=== PATIENT | female | born 2005 | race Caucasian/White ===

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

== ENCOUNTER 2024-06-27 01:45 | Inpatient (IN) | payer OTHER ==
[2024-06-27] MEDS: ELECTROLYTE-148 SOLN 1,000 ML IV SCH (02:30)
[2024-06-27 02:34] VITALS: BMI 23.2
[2024-06-27] MEDS ORDERED: AMPICILLIN SODIUM 2 GM VIAL ONE (02:46)
[2024-06-27] MEDS: AMPICILLIN - 2 GM in SODIUM CHLORIDE 100 ML IVPB ONE (02:50)
[2024-06-27] MEDS ORDERED: OXYTOCIN 20 UNITS in 0.9% NS 20 UNIT/1,000 ML INFUS.BAG IV ONE ×2 (03:19→08:29)
[2024-06-27] MEDS ORDERED: LIDOCAINE HCL 1% PRESERVATIVE FREE - 30ML VIAL ONE (03:20)
[2024-06-27 03:21] LABS: BASO % 0.2 % (0-2.0); EOS % 0.4 % (0-4.5); HEMATOCRIT 32.4 % (32.4-45.2); HEMOGLOBIN 11.4 GM/dL (10.7-15.3); LYMPH % 17.9 % (8-40); MCH 30.9 pg (25.7-33.7); MCHC 35.2 g/dl (32.0-36.0); MEAN CELL VOLUME 87.8 fl (80-96); MEAN PLT VOLUME 7.4 fl (7.5-11.1); MONO % 7.2 % (3.8-10.2); NEUT % 74.3 % (42.8-82.8); PLATELET COUNT 404 10^3/uL (134-434); RBC 3.69 M/mm3 (3.60-5.2); RDW 12.3 % (11.6-15.6); WHITE BLOOD COUNT 10.9 K/mm3 (4.0-10.0)
[2024-06-27] MEDS ORDERED: FENTANYL/BUPIVACAINE/NS/PF - PCEA - 50 ML DISP.SYRIN EP ONE (03:27)
[2024-06-27 03:38] LABS: ACTIVATED PTT 29.8 SECONDS (25.2-36.5)
[2024-06-27] MEDS: FENTANYL/BUPIVACAINE/NS/PF - PCEA - 50 ML DISP.SYRIN EP SCH (03:55)
[2024-06-27 03:56] LABS: POTASSIUM 4.2 mmol/L (3.5-5.1)
[2024-06-27 03:57] LABS: CALCIUM 8.9 mg/dL (8.5-10.1)
[2024-06-27 03:58] LABS: BLOOD UREA NITROGEN 10.6 mg/dL (7-18)
[2024-06-27 04:01] LABS: CREATININE 0.6 mg/dL (0.55-1.3)
[2024-06-27] MEDS ORDERED: ELECTROLYTE-148 SOLN 1,000 ML IV SCH (04:15)
[2024-06-27 04:22] LABS: INR 0.96 (0.83-1.09); PROTHROMBIN TIME (PATIENT) 10.5 SEC (9.7-13.0)
[2024-06-27] MEDS ORDERED: NALOXONE HCL 0.4 MG/ML VIAL IVPUSH PRN (04:46)
[2024-06-27 04:48] LABS: HIV INTERPRETATION NEGATIVE (NEGATIVE)
[2024-06-27] MEDS ORDERED: AMPICILLIN SODIUM 1 GM VIAL ONE (06:13)
[2024-06-27] MEDS: AMPICILLIN - 1 GM in SODIUM CHLORIDE 100 ML IVPB SCH (06:15)
[2024-06-27] MEDS ORDERED: BENZOCAINE 20% 57 GM BOTTLE TP PRN (06:58)
[2024-06-27] MEDS ORDERED: METHYLERGONOVINE MALEATE 0.2 MG/1 ML AMP IM PRN (06:58)
[2024-06-27] MEDS ORDERED: BISACODYL 10 MG SUPP.RECT RC PRN (06:58)
[2024-06-27] MEDS ORDERED: oxyCODONE HCL 5 MG TABLET PO PRN (06:58)
[2024-06-27] MEDS ORDERED: WITCH HAZEL 50% (TUCKS) 40 PAD/JAR PAD TP PRN (06:58)
[2024-06-27] MEDS ORDERED: BENZOCAINE 28 GM HEMORRHOIDAL OINTMENT TP PRN (06:58)
[2024-06-27 07:13] LABS: CORD HCO3 24.1 mmHg (20-29); CORD PCO2 51.8 mmHg (30-78); CORD pH 7.286 (7.14-7.44)
[2024-06-27] MEDS ORDERED: FERROUS SO4 325 MG TABLET (FP) ONE (08:28)
[2024-06-27] MEDS: FERROUS SO4 325 MG TABLET (FP) PO SCH (08:31)
[2024-06-27] MEDS: OXYTOCIN 20 UNITS in 0.9% NS 20 UNIT/1,000 ML INFUS.BAG IV SCH (08:31)
[2024-06-27] MEDS: ACETAMINOPHEN 325 MG TABLET (FP) PO PRN (10:47)
[2024-06-27] MEDS: PRENATAL VITAMINS W/ FOLIC ACID TABLET (FP) PO SCH (10:47)
[2024-06-28] MEDS: IBUPROFEN 600 MG TABLET (FP) PO PRN (06:09)
[2024-06-28 07:39] LABS: BASO % 0.2 % (0-2.0); EOS % 0.6 % (0-4.5); HEMATOCRIT 27.4 % (32.4-45.2); HEMOGLOBIN 9.5 GM/dL (10.7-15.3); LYMPH % 24.4 % (8-40); MCH 30.9 pg (25.7-33.7); MCHC 34.6 g/dl (32.0-36.0); MEAN CELL VOLUME 89.2 fl (80-96); MEAN PLT VOLUME 7.5 fl (7.5-11.1); MONO % 6.8 % (3.8-10.2); PLATELET COUNT 334 10^3/uL (134-434); RBC 3.07 M/mm3 (3.60-5.2); RDW 12.7 % (11.6-15.6); WHITE BLOOD COUNT 8.9 K/mm3 (4.0-10.0)
[2024-06-28] MEDS ORDERED: SENNOSIDES/DOCUSATE COMBO (SENNA PLUS) TABLET (UD) PO PRN (22:00)
[2024-06-28 22:09] VITALS: RESP 18
[2024-06-29 10:26] VITALS: BP 112/70; PULSE 60; TEMP 98.4
== END 2024-06-29 11:15 | disposition home or self-care (01) | DRG 560 ==
LOC: JDEL 01:45 → JLDR 02:15 → J3W 09:00
PROVIDERS: ADMIT Obstetrics & Gynecology; ATTEND Obstetrics & Gynecology
PROC: 10E0XZZ Delivery of Products of Conception, External Approach (ICD-10-PCS; principal; 2024-06-27)
PROC: 0HQ9XZZ Repair Perineum Skin, External Approach (ICD-10-PCS; 2024-06-27)
DX: O99.824 Streptococcus B carrier state complicating childbirth (principal); O70.0 First degree perineal laceration during delivery; Z3A.38 38 weeks gestation of pregnancy; Z37.0 Single live birth
CPT/HCPCS: 36415; 36600; 59409; 80048; 82803; 85025; 85461; 85610; 85730; 86780; 86850; 86870; 86880; 86900; 86901; 86902; 87389